=== PATIENT | female | born 1930 | race American Indian/Alaskan Native ===

== ENCOUNTER 2018-10-04 12:57 | Inpatient (IN) | payer MEDICARE, OTHER ==
[2018-10-04] MEDS ORDERED: PROVENTIL IH ONE (13:22)
[2018-10-04] MEDS ORDERED: ATROVENT IH ONE (13:22)
[2018-10-04] MEDS ORDERED: SOLU-Medrol IV ONE (13:22)
[2018-10-04] MEDS ORDERED: MAGNESIUM SULFATE 2GM/50ML 2 GM/50 ML BAG IV ONE (13:23)
--- NOTE | 2018-10-04 13:24 | Emergency Department Report ---
ED General Adult HPI - General Chief complaint: Dyspnea/Respdistress Stated complaint: MACKENZIE Time Seen by Provider: 10/04/18 13:14 Source: patient, family, EMS (ems notes not available at time of chart dictation), RN notes reviewed Mode of arrival: Stretcher Limitations: Other (patient is a poor historian) - History of Present Illness Initial comments: This is an 88-year-old female. The patient is visiting from [place]. She is not known to this provider previously. She may have a history of congestive heart failure, or emphysema, the patient is not certain. She is accompanied by her daughter. The patient recently drove an out of town for a . The drive was 17 hours. Patient and family report multiple stops for gas, bathroom break. The patient reports being in her usual state of health yesterday. She denies leg pain, leg swelling. She went to the today, and began to experience pain with shortness of breath. She has cough, wheezing, shortness of breath. This is similar to a prior episode of pneumonia that the patient had 2 years ago. The patient endorses weakness, but denies chest pain, abdominal pain, urinary sy mptoms. The patient told me that she's never had this before. The patient started tells me that she has had similar symptoms like this in the past. She is not home oxygen dependent as far as the family knows. -: Gradual, hour(s) Consistency: constant Improves with: medication, rest Worsens with: movement Associated Symptoms: cough, shortness of breath, weakness - Related Data Home Medications Medication Instructions Recorded Confirmed Last Taken Carvedilol 10/04/18 10/04/18 Furosemide [Lasix TAB] 40 mg PO QDAY 10/04/18 10/04/18 Lisinopril 10/04/18 10/04/18 Potassium 10/04/18 10/04/18 Allergies Allergy/AdvReac Type Severity Reaction Status Date / Time No Known Allergies Allergy Unverified 10/04/18 14:40 ED Review of Systems ROS: Stated complaint: MACKENZIE Other details as noted in HPI Constitutional: malaise Eyes: denies: eye discharge Respiratory: cough, shortness of breath, wheezing Cardiovascular: denies: chest pain Gastrointestinal: denies: abdominal pain, hematemesis, melena, hematochezia Genitourinary: denies: dysuria Musculoskeletal: denies: back pain, arthralgia, myalgia Skin: denies: lesions Neurological: weakness Psychiatric: anxiety ED Past Medical Hx - Medications Home Medications: Home Medications Medication Instructions Recorded Confirmed Last Taken Type Carvedilol 10/04/18 10/04/18 History Furosemide [Lasix TAB] 40 mg PO QDAY 10/04/18 10/04/18 History Lisinopril 10/04/18 10/04/18 History Potassium 10/04/18 10/04/18 History ED Physical Exam - General Limitations: No Limitations General appearance: alert, anxious, in distress - Head Head exam: Present: atraumatic, normocephalic - Eye Eye exam: Present: normal appearance, EOMI. Absent: nystagmus - ENT ENT exam: Present: normal exam, normal orophraynx, mucous membranes moist, normal external ear exam - Neck Neck exam: Present: normal inspection, full ROM. Absent: tenderness, meningismus - Respiratory Respiratory exam: Present: respiratory distress, wheezes, rhonchi - Cardiovascular Cardiovascular Exam: Present: normal rhythm, tachycardia, normal heart sounds. Absent: systolic murmur, diastolic murmur, rubs, gallop - GI/Abdominal GI/Abdominal exam: Present: soft. Absent: distended, tenderness, guarding, rebound, rigid, pulsatile mass - Extremities Exam Extremities exam: Present: normal inspection, full ROM, normal capillary refill, other (2+ pulses noted in the bilateral upper, lower extremities. Compartments soft. No long bony tenderness. The pelvis is stable.). Absent: pedal edema, joint swelling, calf tenderness - Back Exam Back exam: Present: normal inspection, full ROM. Absent: tenderness, CVA tenderness (R), paraspinal tenderness, vertebral tenderness - Neurological Exam Neurological exam: Present: alert, CN II-XII intact, other (Extraocular movements intact. Tongue midline. No facial droop. Facial sensation intact to light touch in the V1, V2, V3 distribution bilaterally. 5 and 5 strength in 4 extremities.. Sensation is intact to light touch in 4 extremities.). Absent: motor sensory deficit - Psychiatric Psychiatric exam: Present: anxious - Skin Skin exam: Present: warm, dry, intact, normal color. Absent: rash ED Course Vital Signs 10/04/18 10/04/18 10/04/18 13:27 13:28 14:01 Temperature 97.6 F Pulse Rate 108 H 87 Pulse Rate [ 94 H Anterior Bilateral Throughout] Respiratory 18 18 Rate Respiratory 24 Rate [Anterior Bilateral Throughout] Blood Pressure Blood Pressure 153/88 106/58 [Right] O2 Sat by Pulse 89 98 Oximetry 10/04/18 10/04/18 10/04/18 14:15 14:27 14:30 Temperature Pulse Rate 92 H 84 Pulse Rate [ 83 Anterior Bilateral Throughout] Respiratory 20 20 Rate Respiratory 21 Rate [Anterior Bilateral Throughout] Blood Pressure Blood Pressure 116/59 122/57 [Right] O2 Sat by Pulse 98 98 Oximetry 10/04/18 10/04/18 10/04/18 14:52 14:54 16:49 Temperature Pulse Rate 86 Pulse Rate [ 87 Anterior Bilateral Throughout] Respiratory 21 20 Rate Respiratory 25 H Rate [Anterior Bilateral Throughout] Blood Pressure 122/60 Blood Pressure [Right] O2 Sat by Pulse 99 98 Oximetry 10/04/18 17:04 Temperature Pulse Rate Pulse Rate [ 86 Anterior Bilateral Throughout] Respiratory Rate Respiratory 20 Rate [Anterior Bilateral Throughout] Blood Pressure Blood Pressure [Right] O2 Sat by Pulse Oximetry - Reevaluation(s) Reevaluation #1: 10/04/18 14:11 Differential diagnosis, including not limited to: Pneumonia, congestive heart failure, bronchitis, emphysema Assessment and plan: 88-year-old female with marked respiratory distress. She is tachycardic, tachypnea, and desaturates to 89% on room air. Clinically suspect pneumonia. X-ray the chest to my interpretation suggests right lower lobe pneumonia. Patient from the community. Clinically doubt DVT, pulmonary embolus, however we will obtain right lower extremity, left lower extremity DVT study. She will be given albuterol, Atrovent, steroids, magnesium, she will be treated empirically with ceftriaxone, azithromycin. She is currently on BiPAP, and appears to be feeling better. Discussed with patient and family goals of care, they indicate patient is full code currently. I doubt DVT, we're waiting for at bedside lower extremity DVT study. Reevaluation #2: 10/04/18 14:37 Laboratory studies reviewed and appreciated. Patient appears much improved on B iPAP. No DVT noted in the right lower extremity. Vital signs reviewed and appreciated. Patient appears to have a component of volume overload. Given her BiPAP requirement, it is my opinion that she will not benefit from a fluid bolus at this time. The Hospital physician, Dr. Day has accepted the patient to the medical service. Reevaluation #3: 10/04/18 18:36 DVT study negative. Work of breathing improved. Patient off BiPAP. ED Medical Decision Making - Lab Data Result diagrams: 10/04/18 13:32 10/04/18 13:32 Vital Signs 10/04/18 10/04/18 13:27 13:28 Temperature 97.6 F Pulse Rate 108 H Pulse Rate [ 94 H Anterior Bilateral Throughout] Respiratory 18 Rate Respiratory 24 Rate [Anterior Bilateral Throughout] Blood Pressure 153/88 [Right] O2 Sat by Pulse 89 Oximetry - EKG Data 10/04/18 15:11 sinus, 85 bpm, normal axis, QTC within normal limits, high left ventricular voltage, atrial enlargement, motion artifact, not consistent with ST elevation myocardial infarction. - Radiology Data Radiology results: image reviewed interpreted by me: X-ray of the chest shows right lower lobe pneumonia. Critical Care Time: Yes Critical care time in (mins) excluding proc time.: 45 Critical care attestation.: If time is entered above; I have spent that time in minutes in the direct care of this critically ill patient, excluding procedure time. ED Disposition Clinical Impression: Respiratory distress Disposition: [id number] OP ADMIT IP TO THIS HOSP Is pt being admited?: Yes Condition: Fair
[2018-10-04 14:05] LABS: Basophils % (Auto) 0.4 % (0.0-1.8); Eosinophils # (Auto) 0.2 K/mm3 (0.0-0.4); Eosinophils % (Auto) 2.1 % (0.0-4.3); Hematocrit 40.7 % (30.3-42.9); Hemoglobin 13.2 gm/dl (10.1-14.3); Lymphocytes # (Auto) 1.2 K/mm3 (1.2-5.4); Lymphocytes % (Auto) 15.2 % (13.4-35.0); Mean Corpuscular HGB Conc 32 % (30-34); Mean Corpuscular Volume 91 fl (79-97); Monocytes # (Auto) 0.2 K/mm3 (0.0-0.8); Monocytes % (Auto) 2.6 % (0.0-7.3); Platelet Count 180 K/mm3 (140-440); Red Blood Count 4.49 M/mm3 (3.65-5.03); Red Cell Distribution Width 16.6 % (13.2-15.2)
[2018-10-04] MEDS ORDERED: ROCEPHIN/NS 1 GM/50 ML 1 GM/50 ML BAG IV ONE (14:07)
[2018-10-04 14:15] LABS: INR 1.15 (0.87-1.13)
[2018-10-04 14:16] LABS: Partial Thromboplastin Time 27.2 Sec. (24.2-36.6)
[2018-10-04 14:24] LABS: Albumin 3.9 g/dL (3.9-5); Calcium 8.8 mg/dL (8.4-10.2)
[2018-10-04] MEDS ORDERED: ZITHROMAX 500 MG in NACL 0.9% 250ML 250 ML IV ONE (14:30)
[2018-10-04] MEDS ORDERED: LASIX IV ONE (14:33)
--- NOTE | 2018-10-04 15:05 | History and Physical Report ---
History of Present Illness Date of examination: 10/04/18 Date of admission: 10/04/18 Chief complaint: Increasing SOB for 1 day. History of present illness: 88-year-old female visiting from [place] with history of congestive heart failure recently drove from out of town for a . The drive was 17 hours. Patient and family report multiple stops for gas, bathroom break. The patient reports being in her usual state of health yesterday. She denies leg pain, leg swelling. She went to the today, and began to experience pain with shortness of breath. She has cough, wheezing, shortness of breath. This is similar to a prior episode of pneumonia that the patient had 2 years ago. The patient endorses weakness, but denies chest pain, abdominal pain, urinary symptoms. Severe Orthopnea present Class IV NYHA symptoms present Past Medical History Htn CHF Past surgical history N/a Social Hustory Does't smoke Family history Htn - Medications Home Medications: Home Medications Medication Instructions Recorded Confirmed Last Taken Type Carvedilol 10/04/18 10/04/18 History Furosemide [Lasix TAB] 40 mg PO QDAY 10/04/18 10/04/18 History Lisinopril 10/04/18 10/04/18 History Potassium 10/04/18 10/04/18 History Review of Systems ROS: Stated complaint: MACKENZIE Other details as noted in HPI Constitutional: malaise Eyes: denies: eye discharge Respiratory: cough, shortness of breath, wheezing Cardiovascular: denies: chest pain Gastrointestinal: denies: abdominal pain, hematemesis, melena, hematochezia Genitourinary: denies: dysuria Musculoskeletal: denies: back pain, arthralgia, myalgia Skin: denies: lesions Neurological: weakness Psychiatric: anxie Medications and Allergies Allergies Allergy/AdvReac Type Severity Reaction Status Date / Time No Known Allergies Allergy Unverified 10/04/18 14:40 Home Medications Medication Instructions Recorded Confirmed Last Taken Type Furosemide [Lasix TAB] 40 mg PO QDAY 10/04/18 10/05/18 10/04/18 History Aspirin [Lo-Dose Aspirin EC] 81 mg PO DAILY 10/05/18 10/05/18 1 Day Ago History ~10/04/18 Carvedilol [Coreg] 3.125 mg PO BID 10/05/18 10/05/18 1 Day Ago History ~10/04/18 Losartan [Cozaar] 25 mg PO QDAY 10/05/18 10/05/18 1 Day Ago History ~10/04/18 Active Meds: Active Medications Azithromycin 500 mg/ Sodium (Chloride) 250 mls @ 250 mls/hr IV ONCE ONE Stop: 10/04/18 15:29 Exam - Constitutional Vitals: Temp Pulse Resp BP Pulse Ox 97.6 F 86 20 122/60 98 10/04/18 13:27 10/04/18 14:52 10/04/18 14:54 10/04/18 14:52 10/04/18 14:54 General appearance: Present: severe distress - Respiratory Respiratory: bilateral: diminished, rales, rhonchi - Cardiovascular Heart rate: 98 Rhythm: regular - Extremities Extremities: no ischemia - Abdominal General gastrointestinal: Present: soft, non-tender, normal bowel sounds - Rectal Rectal Exam: deferred - Integumentary Integumentary: Present: clear - Musculoskeletal Musculoskeletal: strength equal bilaterally - Psychiatric Psychiatric: appropriate mood/affect - Neurologic Neurologic: CNII-XII intact - Allied Health Allied health notes reviewed: nursing, case management Results - Labs CBC & Chem 7: 10/04/18 13:32 10/04/18 13:32 Labs: Laboratory Last Values WBC 7.6 K/mm3 (4.5-11.0) 10/04/18 13:32 RBC 4.49 M/mm3 (3.65-5.03) 10/04/18 13:32 Hgb 13.2 gm/dl (10.1-14.3) 10/04/18 13:32 Hct 40.7 % (30.3-42.9) 10/04/18 13:32 MCV 91 fl (79-97) 10/04/18 13:32 MCH 29 pg (28-32) 10/04/18 13:32 MCHC 32 % (30-34) 10/04/18 13:32 RDW 16.6 % (13.2-15.2) H 10/04/18 13:32 Plt Count 180 K/mm3 (140-440) 10/04/18 13:32 Lymph % (Auto) 15.2 % (13.4-35.0) 10/04/18 13:32 [place] % (Auto) 2.6 % (0.0-7.3) 10/04/18 13:32 Eos % (Auto) 2.1 % (0.0-4.3) 10/04/18 13:32 Baso % (Auto) 0.4 % (0.0-1.8) 10/04/18 13:32 Lymph # 1.2 K/mm3 (1.2-5.4) 10/04/18 13:32 [place] # 0.2 K/mm3 (0.0-0.8) 10/04/18 13:32 Eos # 0.2 K/mm3 (0.0-0.4) 10/04/18 13:32 Baso # 0.0 K/mm3 (0.0-0.1) 10/04/18 13:32 Seg Neutrophils % 79.7 % (40.0-70.0) H 10/04/18 13:32 Seg Neutrophils # 6.0 K/mm3 (1.8-7.7) 10/04/18 13:32 PT 15.4 Sec. (12.2-14.9) H 10/04/18 13:32 INR 1.15 (0.87-1.13) H 10/04/18 13:32 APTT 27.2 Sec. (24.2-36.6) 10/04/18 13:32 Sodium 137 mmol/L (137-145) 10/04/18 13:32 Potassium 4.4 mmol/L (3.6-5.0) 10/04/18 13:32 Chloride 103.1 mmol/L (98-107) 10/04/18 13:32 Carbon Dioxide 17 mmol/L (22-30) L 10/04/18 13:32 Anion Gap 21 mmol/L 10/04/18 13:32 BUN 31 mg/dL (7-17) H 10/04/18 13:32 Creatinine 1.5 mg/dL (0.7-1.2) H 10/04/18 13:32 Estimated GFR 33 ml/min 10/04/18 13:32 BUN/Creatinine Ratio 21 % 10/04/18 13:32 Glucose 265 mg/dL (65-100) H 10/04/18 13:32 Lactic Acid 1.80 mmol/L (0.7-2.0) 10/04/18 13:32 Calcium 8.8 mg/dL (8.4-10.2) 10/04/18 13:32 Total Bilirubin 0.50 mg/dL (0.1-1.2) 10/04/18 13:32 AST 17 units/L (5-40) 10/04/18 13:32 ALT 14 units/L (7-56) 10/04/18 13:32 Alkaline Phosphatase 71 units/L (35-129) 10/04/18 13:32 Troponin T < 0.010 ng/mL (0.00-0.029) 10/04/18 13:32 NT-Pro-B Natriuret Pep 4388 pg/mL (0-900) H 10/04/18 13:32 Total Protein 7.5 g/dL (6.3-8.2) 10/04/18 13:32 Albumin 3.9 g/dL (3.9-5) 10/04/18 13:32 Albumin/Globulin Ratio 1.1 % 10/04/18 13:32 - Imaging and Cardiology EKG: report reviewed (NSR 85/min LVH) Chest x-ray: report reviewed Imaging and Cardiology: CXR IMPRESSION: 1. Enlarged cardiac silhouette with bilateral interstitial and airspace process, probable small right pleural fluid collection and evidence of pulmonary venous congestion. This constellation of findings is most suggestive of CHF. However, a superimposed infectious process cannot entirely be excluded. Assessment and Plan Advance Directives: Yes (Full code) VTE prophylaxis?: Chemical Plan of care discussed with patient/family: Yes - Patient Problems (1) Acute respiratory failure with hypoxia Current Visit: Yes Status: Acute Plan to address problem: Patient with Low sats On Bipap Intubation if necessary (2) Acute exacerbation of congestive heart failure Current Visit: Yes Status: Acute Qualifiers: Heart failure type: combined systolic and diastolic Qualified Code(s): I50.43 - Acute on chronic combined systolic (congestive) and diastolic (congestive) heart failure Plan to address problem: IV Lasix for now Echo for EF (3) HTN (hypertension) Current Visit: Yes Status: Chronic Qualifiers: Hypertension type: essential hypertension Qualified Code(s): I10 - Essential (primary) hypertension Plan to address problem: Cont antihypertensives (4) JOY (acute kidney injury) Current Visit: Yes Status: Acute Plan to address problem: Will defer to Nephrology (5) Hyperglycemia Current Visit: Yes Status: Acute Plan to address problem: Coverage for now (6) DVT prophylaxis Current Visit: Yes Status: Acute Plan to address problem: on lovenox
[2018-10-04] MEDS ORDERED: ZOFRAN IV PRN (15:10)
[2018-10-04] MEDS ORDERED: DILAUDID IV PRN (15:10)
[2018-10-04] MEDS ORDERED: PERCOCET 5/325 PO PRN (15:10)
[2018-10-04] MEDS ORDERED: SODIUM CHLORIDE FLUSH SYRINGE 10 ML IV PRN (15:10)
[2018-10-04] MEDS ORDERED: TYLENOL PO PRN (15:10)
[2018-10-04] MEDS ORDERED: LEVAQUIN 750MG/150ML 750 MG/150 ML BAG IV SCH (16:00)
[2018-10-04] MEDS ORDERED: DUONEB *Not for PRN Use IH ONE (16:49)
[2018-10-04] MEDS: DUONEB *Not for PRN Use IH SCH ×2 (16:49→21:40)
[2018-10-04] MEDS ORDERED: LASIX ONE (17:47)
[2018-10-04] MEDS: K-DUR PO SCH (17:47)
[2018-10-04] MEDS ORDERED: K-DUR PO ONE (17:47)
[2018-10-04] MEDS: LASIX IV SCH (18:33)
--- NOTE | 2018-10-04 18:37 | XRay Report ---
PROCEDURE: XR CHEST 1V AP TECHNIQUE: Chest radiograph single view. HISTORY: dyspnea COMPARISONS: None . FINDINGS: There is a diffuse bilateral interstitial and airspace process in both lungs with a probable small ri ght pleural fluid collection. The cardiac silhouette is enlarged. The thoracic aorta is tortuous with atherosclerotic vascular calcification. There is prominence of the pulmonary venous vasculature suggestive of pulmonary venous congestion. The bony structures are notable for degenerative change of the shoulder joints bilaterally. Visualiza tion of detail of the thoracic spine is limited. IMPRESSION: 1. Enlarged cardiac silhouette with bilateral interstitial and airspace process, probable small right pleural fluid collection and evidence of pulmonary venous congestion. This constellation of findings is most suggestive of CHF. However, a superimposed infectious process cannot entirely be excluded. This document is electronically signed by Maricel Maldonado MD., October 04 2018 02:32:35 PM ET
--- NOTE | 2018-10-04 19:46 | Vascular Lab Report ---
PROCEDURE: VL VENOUS DUPLEX LE BILAT HISTORY: dyspnea ? lower ext swelling FINDINGS: Real-time ultrasound of the right leg and left leg was performed using grayscale and color Doppler images. These images demonstrate no evidence of deep venous thrombus in the right or left common femoral vein , superficial femoral vein, popliteal vein and posterior tibial vein. IMPRESSION: No DVT in either leg This document is electronically signed by Iban Dueñas MD., October 04 2018 03:20:01 PM ET
[2018-10-04] MEDS ORDERED: LEVAQUIN 750MG/150ML 750 MG/150 ML BAG IV ONE (19:55)
[2018-10-04] MEDS: LEVAQUIN 750MG/150ML 750 MG/150 ML BAG IV SCH (20:00)
[2018-10-04] MEDS: SODIUM CHLORIDE FLUSH SYRINGE 10 ML IV SCH (23:03)
[2018-10-04] MEDS: SOLU-Medrol IV SCH (23:03)
[2018-10-05] MEDS: LASIX IV SCH ×2 (05:22→18:16)
[2018-10-05] MEDS: SOLU-Medrol IV SCH ×3 (05:23→21:39)
[2018-10-05] MEDS: K-DUR PO SCH ×2 (05:23→18:16)
[2018-10-05 08:35] LABS: Hemoglobin 12.9 gm/dl (10.1-14.3); Lymphocytes % (Auto) 15.5 % (13.4-35.0); Mean Corpuscular HGB Conc 33 % (30-34); Mean Corpuscular Volume 89 fl (79-97); Monocytes # (Auto) 0.1 K/mm3 (0.0-0.8); Monocytes % (Auto) 1.3 % (0.0-7.3); Platelet Count 191 K/mm3 (140-440); Red Blood Count 4.37 M/mm3 (3.65-5.03); Red Cell Distribution Width 16.5 % (13.2-15.2)
[2018-10-05 08:54] LABS: Albumin 4.3 g/dL (3.9-5); Calcium 9.2 mg/dL (8.4-10.2)
[2018-10-05] MEDS: DUONEB *Not for PRN Use IH SCH ×5 (09:25→20:11)
--- NOTE | 2018-10-05 09:58 | Consultation ---
History of Present Illness Consult date: 10/05/18 Consult reason: congestive heart failure History of present illness: 88-year-old female visiting from [place] with history of congestive heart f ailure who was attending a for her brother in law in town yesterday. She reports she got very upset at the and subsequently became short of breath. She has recently noticed intermittent orthopnea but has not experienced any unusual LE edema, palpitations, syncope or pre-syncope. She was noted to have elevated BNP and pulmonary congestion on chest Xray consistent with decompensated CHF. Past History Past Medical History: heart failure, hypertension Social history: denies: smoking, alcohol abuse Family history: hypertension Medications and Allergies Allergies Allergy/AdvReac Type Severity Reaction Status Date / Time No Known Allergies Allergy Unverified 10/04/18 14:40 Home Medications Medication Instructions Recorded Confirmed Last Taken Type Furosemide [Lasix TAB] 40 mg PO QDAY 10/04/18 10/05/18 10/04/18 History Aspirin [Lo-Dose Aspirin EC] 81 mg PO DAILY 10/05/18 10/05/18 1 Day Ago History ~10/04/18 Carvedilol [Coreg] 3.125 mg PO BID 10/05/18 10/05/18 1 Day Ago History ~10/04/18 Losartan [Cozaar] 25 mg PO QDAY 10/05/18 10/05/18 1 Day Ago History ~10/04/18 Active Meds: Active Medications Acetaminophen (Tylenol) 650 mg PO Q4H PRN PRN Reason: Pain MILD(1-3)/Fever >100.5/GONSALES Albuterol/Ipratropium (Duoneb *Not For Prn Use*) 1 ampul IH QIDRT [facility] Last Admin: 10/05/18 09:28 Dose: Not Given Documented by: Furosemide (Lasix) 40 mg IV 0600,1800 [facility] Last Admin: 10/05/18 05:22 Dose: 40 mg Documented by: Hydromorphone HCl (Dilaudid) 0.5 mg IV Q3H PRN PRN Reason: Pain , Severe (7-10) Levofloxacin/Dextrose (Levaquin 750mg/150ml) 750 mg in 150 mls @ 100 mls/hr IV Q48HR [facility]; Protocol Last Admin: 10/04/18 20:00 Dose: 100 mls/hr Documented by: Insulin Human Lispro (Humalog) 0 unit SUB-Q ACHS [facility]; Protocol Methylprednisolone Sodium Succinate (Solu-Medrol) 40 mg IV Q8HR [facility] Last Admin: 10/05/18 05:23 Dose: 40 mg Documented by: Ondansetron HCl (Zofran) 4 mg IV Q8H PRN PRN Reason: Nausea And Vomiting Oxycodone/Acetaminophen (Percocet 5/325) 1 tab PO Q6H PRN PRN Reason: Pain, Moderate (4-6) Potassium Chloride (K-Dur) 20 meq PO Q12H [facility] Last Admin: 10/05/18 05:23 Dose: 20 meq Documented by: Sodium Chloride (Sodium Chloride Flush Syringe 10 Ml) 10 ml IV BID [facility] Last Admin: 10/04/18 23:03 Dose: 10 ml Documented by: Sodium Chloride (Sodium Chloride Flush Syringe 10 Ml) 10 ml IV PRN PRN PRN Reason: LINE FLUSH Review of Systems All systems: negative (per hpi) Physical Examination Vital Signs Temp Pulse Resp BP Pulse Ox 97.6 F 108 H 18 153/88 89 10/04/18 13:27 10/04/18 13:27 10/04/18 13:27 10/04/18 13:27 10/04/18 13:27 HEENT: Positive: PERRL, EOMI Neck: Positive: neck supple Cardiac: Positive: Regular Rate, Regular Rhythm, Systolic Murmur (II/ HSM at apex) Lungs: Positive: Decreased Breath Sounds, Rales Abdomen: Positive: Soft, Active Bowel Sounds Extremities: Absent: edema Results 10/05/18 07:18 10/05/18 07:18 Cardiac Enzymes 10/04/18 10/05/18 Range/Units 13:32 07:18 AST 17 17 (5-40) units/L Coagulation 10/04/18 Range/Units 13:32 PT 15.4 H (12.2-14.9) Sec. INR 1.15 H (0.87-1.13) APTT 27.2 (24.2-36.6) Sec. CBC 10/04/18 10/05/18 Range/Units 13:32 07:18 WBC 7.6 6.3 (4.5-11.0) K/mm3 RBC 4.49 4.37 (3.65-5.03) M/mm3 Hgb 13.2 12.9 (10.1-14.3) gm/dl Hct 40.7 39.0 (30.3-42.9) % Plt Count 180 191 (140-440) K/mm3 Lymph # 1.2 1.0 L (1.2-5.4) K/mm3 [place] # 0.2 0.1 (0.0-0.8) K/mm3 Eos # 0.2 0.0 (0.0-0.4) K/mm3 Baso # 0.0 0.0 (0.0-0.1) K/mm3 Comprehensive Metabolic Panel 10/04/18 10/05/18 Range/Units 13:32 07:18 Sodium 137 138 (137-145) mmol/L Potassium 4.4 4.4 (3.6-5.0) mmol/L Chloride 103.1 99.4 (98-107) mmol/L Carbon Dioxide 17 L 19 L (22-30) mmol/L BUN 31 H 34 H (7-17) mg/dL Creatinine 1.5 H 1.6 H (0.7-1.2) mg/dL Glucose 265 H 162 H (65-100) mg/dL Calcium 8.8 9.2 (8.4-10.2) mg/dL AST 17 17 (5-40) units/L ALT 14 13 (7-56) units/L Alkaline Phosphatase 71 68 (35-129) units/L Total Protein 7.5 7.8 (6.3-8.2) g/dL Albumin 3.9 4.3 (3.9-5) g/dL Assessment and Plan Acute on chronic heart failure. Htn Recommend: IV diuresis Monitor and correct electrolytes Continue chronic medical therapy for heart failure Check Echocardiogram
--- NOTE | 2018-10-05 13:43 | Consultation ---
History of Present Illness - Reason for Consult Consult date: 10/05/18 acute renal failure - History of Present Illness The patient is an 88 YO female with medical history significant for HTN, DM type 2 (diet controlled) and CHF who presented to [facility] ER yesterday with c/o shortness of breath. The patient drove from [place] to attend for her brother in-law. Yesterday while at the confucianist she began to experience shortness of breath and associated with cough and wheezing. This is similar to a prior episode of pneumonia about 2 years ago. Her symptoms are better now. She denies leg pain, leg swelling, hemoptysis, cp, N, V, D, abd pain, dizziness, syncope, dysuria or hematuria. Patient denies any prior kidney problem or h/o kidney stone. Creatinine was 1.6 today. Nephrology was consulted for further evaluation. Past History Past Medical History: diabetes, heart failure, hypertension Social history: denies: smoking, alcohol abuse Family history: hypertension Medications and Allergies Allergies Allergy/AdvReac Type Severity Reaction Status Date / Time No Known Allergies Allergy Unverified 10/04/18 14:40 Home Medications Medication Instructions Recorded Confirmed Last Taken Type Furosemide [Lasix TAB] 40 mg PO QDAY 10/04/18 10/05/18 10/04/18 History Aspirin [Lo-Dose Aspirin EC] 81 mg PO DAILY 10/05/18 10/05/18 1 Day Ago History ~10/04/18 Carvedilol [Coreg] 3.125 mg PO BID 10/05/18 10/05/18 1 Day Ago History ~10/04/18 Losartan [Cozaar] 25 mg PO QDAY 10/05/18 10/05/18 1 Day Ago History ~10/04/18 Active Meds: Active Medications Acetaminophen (Tylenol) 650 mg PO Q4H PRN PRN Reason: Pain MILD(1-3)/Fever >100.5/GONSALES Albuterol/Ipratropium (Duoneb *Not For Prn Use*) 1 ampul IH QIDRT [facility] Last Admin: 10/05/18 11:51 Dose: Not Given Documented by: Furosemide (Lasix) 40 mg IV 0600,1800 [facility] Last Admin: 10/05/18 05:22 Dose: 40 mg Documented by: Hydromorphone HCl (Dilaudid) 0.5 mg IV Q3H PRN PRN Reason: Pain , Severe (7-10) Levofloxacin/Dextrose (Levaquin 750mg/150ml) 750 mg in 150 mls @ 100 mls/hr IV Q48HR [facility]; Protocol Last Admin: 10/04/18 20:00 Dose: 100 mls/hr Documented by: Insulin Human Lispro (Humalog) 0 unit SUB-Q ACHS [facility]; Protocol Methylprednisolone Sodium Succinate (Solu-Medrol) 40 mg IV Q8HR [facility] Last Admin: 10/05/18 05:23 Dose: 40 mg Documented by: Ondansetron HCl (Zofran) 4 mg IV Q8H PRN PRN Reason: Nausea And Vomiting Oxycodone/Acetaminophen (Percocet 5/325) 1 tab PO Q6H PRN PRN Reason: Pain, Moderate (4-6) Potassium Chloride (K-Dur) 20 meq PO Q12H [facility] Last Admin: 10/05/18 05:23 Dose: 20 meq Documented by: Sodium Chloride (Sodium Chloride Flush Syringe 10 Ml) 10 ml IV BID [facility] Last Admin: 10/04/18 23:03 Dose: 10 ml Documented by: Sodium Chloride (Sodium Chloride Flush Syringe 10 Ml) 10 ml IV PRN PRN PRN Reason: LINE FLUSH Review of Systems Constitutional: no weight loss, no weight gain, no fever, no chills, no anorexia, no weakness Cardiovascular: shortness of breath, dyspnea on exertion, high blood pressure, no chest pain, no orthopnea, no edema, no syncope, no lightheadedness, no paroxysmal nocturnal dyspnea, no leg edema Respiratory: cough, shortness of breath, dyspnea on exertion, no cough with sputum, no excessive sputum, no hemoptysis Gastrointestinal: no abdominal pain, no nausea, no vomiting, no diarrhea, no melena Genitourinary Female: no dysuria, no hematuria Rectal: no bleeding Integumentary: no rash, no redness, no wounds, no jaundice Neurological: no head injury, no paralysis, no syncope, no convulsions, no change in speech, no change in mentation, no confusion Exam - Vital Signs Vital signs: Vital Signs Temp Pulse Resp BP Pulse Ox 97.6 F 108 H 18 153/88 89 10/04/18 13:27 10/04/18 13:27 10/04/18 13:27 10/04/18 13:27 10/04/18 13:27 - General Appearance General appearance: well-developed, well-nourished, appears stated age, other (not in distress) EENT: ATNC, PERRL, mucous membranes moist, hearing intact, vision intact Neck: Present: neck supple, trachea midline Respiratory: Clear to Ascultation Heart: regular, S1S2, no murmurs Gastrointestinal: Present: normoactive bowel sounds. Absent: tenderness, distended Integumentary: no rash, warm and dry Neurologic: no focal deficit, no asterixis, alert and oriented x3 Musculoskeletal: Present: other (no edema) Psychiatric: cooperative Results - Lab Results 10/05/18 07:18 10/05/18 07:18 Most recent lab results Calcium 9.2 mg/dL (8.4-10.2) 10/05/18 07:18 - Image Kidney/bladder ultrasound: pending Assessment and Plan 1. Acute kidney injury: Likely Vasomotor / hemodynamic JOY in the setting of CHF exacerbation. Renal function appears to be stable. Baseline renal function is unknown. Urine studies and Renal US. Monitor renal function. Avoid nephrotoxic agents. Meds dosage based on GFR. 2. FEN: Volume overload, diuresis. Metabolic acidosis. 3. Acute on chronic CHF: Improving. Followed by cards. 4. DM type 2. 5. HTN.
[2018-10-05] MEDS: HumaLOG SUB-Q SCH ×3 (15:02→21:39)
[2018-10-05] MEDS: SODIUM CHLORIDE FLUSH SYRINGE 10 ML IV SCH ×2 (16:13→21:39)
--- NOTE | 2018-10-05 16:15 | Progress Note ---
Assessment and Plan - Patient Problems (1) JOY (acute kidney injury) Current Visit: Yes Status: Acute Plan to address problem: Acute kidney injury in the presence of congestive heart failure most likely vasomotor. Will follow up chemistry in a.m. Nephrology consult. (2) Acute exacerbation of congestive heart failure Current Visit: Yes Status: Acute Qualifiers: Heart failure type: combined systolic and diastolic Qualified Code(s): I50.43 - Acute on chronic combined systolic (congestive) and diastolic (congestive) heart failure Plan to address problem: Exacerbation of congestive heart failure. Gentle diuresis especially with acute kidney injury.Patient currently not on beta milo or ANDREA inhibitor. The first continue diuretics and establish left ventricular function. If patient requires beta milo prior to discharge and we need to follow initiation of ANDREA inhibitor given acute kidney injury.. Echocardiogram pending. Will hold ANDREA inhibitor for now until renal function improves. Patient should do will presently asymptomatic now. No JVD know lower extremity edema no ascites. (3) DVT prophylaxis Current Visit: Yes Status: Acute (4) HTN (hypertension) Current Visit: Yes Status: Chronic Qualifiers: Hypertension type: essential hypertension Qualified Code(s): I10 - Essential (primary) hypertension Plan to address problem: Patient currently is without any medications in blood pressure is fairly well- controlled. History Interval history: Patient a bedside resting comfortably. No further shortness of breath. Patient is actively just received echocardiogram. Patient denies chest pain did not shortness of breath denies any lower extremity swelling. Chest x-ray upon admission showed mild pulmonary venous congestion. Hospitalist Physical - Constitutional Vitals: Temp Pulse Resp BP Pulse Ox 98.8 F 97 H 16 119/62 96 10/05/18 08:41 10/05/18 08:41 10/05/18 08:41 10/05/18 08:41 10/05/18 08:41 General appearance: Present: severe distress - EENT Eyes: Present: PERRL, EOM intact ENT: hearing intact, clear oral mucosa, dentition normal, no oropharyngeal erythema, no poor dentition, no thrush - Neck Neck: Present: supple, normal ROM. Absent: enlarged thyroid, masses or JVD, cervical LAD - Respiratory Respiratory: bilateral: CTA, rhonchi (few at bases) - Cardiovascular Rhythm: regular Heart Sounds: Present: S1 & S2 - Extremities Extremities: no ischemia, pulses intact, pulses symmetrical, No edema, normal temperature, normal color, Full ROM Peripheral Pulses: within normal limits - Abdominal General gastrointestinal: soft, non-tender, non-distended, normal bowel sounds - Integumentary Integumentary: Present: clear, warm, dry - Psychiatric Psychiatric: appropriate mood/affect, intact judgment & insight, memory intact - Neurologic Neurologic: CNII-XII intact, moves all extremities Results - Labs CBC & Chem 7: 10/05/18 07:18 10/05/18 07:18 Labs: Laboratory Last Values WBC 6.3 K/mm3 (4.5-11.0) 10/05/18 07:18 RBC 4.37 M/mm3 (3.65-5.03) 10/05/18 07:18 Hgb 12.9 gm/dl (10.1-14.3) 10/05/18 07:18 Hct 39.0 % (30.3-42.9) 10/05/18 07:18 MCV 89 fl (79-97) 10/05/18 07:18 MCH 29 pg (28-32) 10/05/18 07:18 MCHC 33 % (30-34) 10/05/18 07:18 RDW 16.5 % (13.2-15.2) H 10/05/18 07:18 Plt Count 191 K/mm3 (140-440) 10/05/18 07:18 Lymph % (Auto) 15.5 % (13.4-35.0) 10/05/18 07:18 [place] % (Auto) 1.3 % (0.0-7.3) 10/05/18 07:18 Eos % (Auto) 0.0 % (0.0-4.3) 10/05/18 07:18 Baso % (Auto) 0.0 % (0.0-1.8) 10/05/18 07:18 Lymph # 1.0 K/mm3 (1.2-5.4) L 10/05/18 07:18 [place] # 0.1 K/mm3 (0.0-0.8) 10/05/18 07:18 Eos # 0.0 K/mm3 (0.0-0.4) 10/05/18 07:18 Baso # 0.0 K/mm3 (0.0-0.1) 10/05/18 07:18 Seg Neutrophils % 83.2 % (40.0-70.0) H 10/05/18 07:18 Seg Neutrophils # 5.3 K/mm3 (1.8-7.7) 10/05/18 07:18 PT 15.4 Sec. (12.2-14.9) H 10/04/18 13:32 INR 1.15 (0.87-1.13) H 10/04/18 13:32 APTT 27.2 Sec. (24.2-36.6) 10/04/18 13:32 Sodium 138 mmol/L (137-145) 10/05/18 07:18 Potassium 4.4 mmol/L (3.6-5.0) 10/05/18 07:18 Chloride 99.4 mmol/L (98-107) 10/05/18 07:18 Carbon Dioxide 19 mmol/L (22-30) L 10/05/18 07:18 Anion Gap 24 mmol/L 10/05/18 07:18 BUN 34 mg/dL (7-17) H 10/05/18 07:18 Creatinine 1.6 mg/dL (0.7-1.2) H 10/05/18 07:18 Estimated GFR 37 ml/min 10/05/18 07:18 BUN/Creatinine Ratio 21 % 10/05/18 07:18 Glucose 162 mg/dL (65-100) H 10/05/18 07:18 POC Glucose 162 (70-105) H 10/05/18 08:43 Hemoglobin A1c 6.1 % (4-6) H 10/04/18 15:20 Lactic Acid 1.80 mmol/L (0.7-2.0) 10/04/18 13:32 Calcium 9.2 mg/dL (8.4-10.2) 10/05/18 07:18 Total Bilirubin 0.60 mg/dL (0.1-1.2) 10/05/18 07:18 AST 17 units/L (5-40) 10/05/18 07:18 ALT 13 units/L (7-56) 10/05/18 07:18 Alkaline Phosphatase 68 units/L (35-129) 10/05/18 07:18 Troponin T < 0.010 ng/mL (0.00-0.029) 10/04/18 13:32 NT-Pro-B Natriuret Pep 4388 pg/mL (0-900) H 10/04/18 13:32 Total Protein 7.8 g/dL (6.3-8.2) 10/05/18 07:18 Albumin 4.3 g/dL (3.9-5) 10/05/18 07:18 Albumin/Globulin Ratio 1.2 % 10/05/18 07:18
[2018-10-05 20:02] LABS: Bilirubin,Urine NEG (Negative); Blood,Urine NEG (Negative); Color,Urine Yellow (Yellow); Mucus,Urine FEW /HPF; Protein,Urine <15 mg/dL mg/dL (Negative); Urobilinogen,Urine < 2.0 mg/dL (<2.0)
[2018-10-05 20:07] LABS: Creatinine,Urine 85.3 mg/dL (0.1-20.0); Protein/Creatinine Ratio,Urine 0.15
[2018-10-05] MEDS ORDERED: LOVENOX SUB-Q SCH ×2 (22:00)
[2018-10-06] MEDS: K-DUR PO SCH (05:47)
[2018-10-06] MEDS: LASIX IV SCH (05:47)
[2018-10-06] MEDS: SOLU-Medrol IV SCH ×2 (06:00→13:12)
[2018-10-06] MEDS: DUONEB *Not for PRN Use IH SCH ×2 (07:50→12:37)
[2018-10-06] MEDS: HumaLOG SUB-Q SCH ×2 (08:59→13:12)
[2018-10-06] MEDS: LEVAQUIN 750MG/150ML 750 MG/150 ML BAG IV SCH (09:00)
--- NOTE | 2018-10-06 09:27 | Progress Note ---
Assessment and Plan 1. Acute kidney injury: Likely Vasomotor / hemodynamic JOY in the setting of CHF exacerbation. Increase in the creatinine level is likely due to diuresis. Lasix dose was decreased. Baseline renal function is unknown. Suspect CKD stage 3. Monitor renal function. Avoid nephrotoxic agents. Meds dosage based on GFR. 2. FEN: Volume overload, improved. Metabolic acidosis. 3. Acute on chronic CHF: Improving. Followed by cards. 4. DM type 2. 5. HTN. F/u with me or pcp within 1 week. Further work up needed. Also d/w her daughter at the bedside. Subjective Date of service: 10/06/18 Interval history: Patient is feeling better. Objective - Vital Signs Vital signs: Vital Signs - 12hr 10/05/18 10/06/18 10/06/18 23:35 04:00 07:35 Temperature 98.2 F 98.2 F 98.6 F Pulse Rate 115 H 112 H 105 H Pulse Rate [ Anterior Bilateral Throughout] Respiratory 16 16 18 Rate Respiratory Rate [Anterior Bilateral Throughout] Blood Pressure 93/55 117/69 Blood Pressure 103/58 [Right] O2 Sat by Pulse 97 97 94 Oximetry 10/06/18 10/06/18 07:50 08:05 Temperature Pulse Rate Pulse Rate [ 92 H 103 H Anterior Bilateral Throughout] Respiratory Rate Respiratory 18 18 Rate [Anterior Bilateral Throughout] Blood Pressure Blood Pressure [Right] O2 Sat by Pulse Oximetry - General Appearance General appearance: well-developed, well-nourished, appears stated age, other (not in distress) EENT: ATNC, PERRL, mucous membranes moist, hearing intact, vision intact Neck: supple Respiratory: Present: Clear to Ascultation Cardiology: regular, S1S2, no murmurs Gastrointestinal: normoactive bowel sounds, no tenderness, no distended Integumentary: no rash, warm and dry Neurologic: no focal deficit, no asterixis, alert and oriented x3 Musculoskeletal: other (no edema) - Lab 10/05/18 07:18 10/06/18 09:36 Most recent lab results Calcium 9.2 mg/dL (8.4-10.2) 10/05/18 07:18 Urine Creatinine 85.3 mg/dL (0.1-20.0) H 10/05/18 19:45 Urine Sodium 35 mmol/L 10/05/18 19:45 Urine Total Protein 13 mg/dL (5-11.8) H 10/05/18 19:45 Medications & Allergies - Medications Allergies/Adverse Reactions: Allergies No Known Allergies Allergy (Unverified 10/04/18 14:40) Home Medications: Home Medications Medication Instructions Recorded Confirmed Last Taken Type Furosemide [Lasix TAB] 40 mg PO QDAY 10/04/18 10/05/18 10/04/18 History Aspirin [Lo-Dose Aspirin EC] 81 mg PO DAILY 10/05/18 10/05/18 1 Day Ago History ~10/04/18 Carvedilol [Coreg] 3.125 mg PO BID 10/05/18 10/05/18 1 Day Ago History ~10/04/18 Active Medications: Generic Name Dose Route Start Last Admin Trade Name Freq PRN Reason Stop Dose Admin Acetaminophen 650 mg 10/04/18 15:10 Tylenol PO Q4H PRN Pain MILD(1-3)/Fever >100.5/GONSALES Albuterol/Ipratropium 1 ampul 10/04/18 16:00 10/06/18 07:50 Duoneb *Not For Prn Use* IH 1 ampul QIDRT [facility] Administration Enoxaparin Sodium 30 mg 10/05/18 22:00 10/05/18 22:23 Lovenox SUB-Q Not Given QDAY@2200 [facility] Furosemide 40 mg 10/04/18 18:00 10/06/18 05:47 Lasix IV 40 mg 0600,1800 [facility] Administration Hydromorphone HCl 0.5 mg 10/04/18 15:10 Dilaudid IV Q3H PRN Pain , Severe (7-10) Levofloxacin/Dextrose 750 mg in 150 mls @ 100 mls/hr 10/04/18 17:00 10/06/18 09:00 Levaquin 750mg/150ml IV 100 mls/hr Q48HR [facility] Administration Protocol Insulin Human Lispro 0 unit 10/05/18 11:30 10/06/18 08:59 Humalog SUB-Q 2 unit ACHS [facility] Administration Protocol Methylprednisolone Sodium Succinate 40 mg 10/04/18 22:00 10/06/18 06:00 Solu-Medrol IV Not Given Q8HR [facility] Ondansetron HCl 4 mg 10/04/18 15:10 Zofran IV Q8H PRN Nausea And Vomiting Oxycodone/Acetaminophen 1 tab 10/04/18 15:10 Percocet 5/325 PO Q6H PRN Pain, Moderate (4-6) Potassium Chloride 20 meq 10/04/18 16:00 10/06/18 05:47 K-Dur PO 20 meq Q12H [facility] Administration Sodium Chloride 10 ml 10/04/18 22:00 10/05/18 21:39 Sodium Chloride Flush Syringe 10 Ml IV 10 ml BID [facility] Administration Sodium Chloride 10 ml 10/04/18 15:10 Sodium Chloride Flush Syringe 10 Ml IV PRN PRN LINE FLUSH
--- NOTE | 2018-10-06 10:32 | Progress Note ---
<NADIRA ALICIA - Last Filed: 10/06/18 10:29> Assessment and Plan Acute on chronic heart failure Acute renal failure Htn Recommend: Continue chronic medical therapy for heart failure. Transition to oral Lasix. Echocardiogram completed, results are pending. Subjective Date of service: 10/06/18 Interval history: Patient reports her breathing is better. No distress noted. Family members at bedside. Objective Vital Signs Temp Pulse Pulse Pulse Resp Resp BP 10/06/18 08:05 103 H 18 10/06/18 07:50 92 H 18 10/06/18 07:35 98.6 F 105 H 18 117/69 10/06/18 04:00 98.2 F 112 H 16 10/05/18 23:35 98.2 F 115 H 16 93/55 10/05/18 20:30 122 H 20 10/05/18 20:21 120 H 18 10/05/18 20:11 109 H 18 10/05/18 19:36 97.4 F L 118 H 16 113/71 10/05/18 19:31 105 H 10/05/18 17:26 97.3 F L 118 H 16 118/79 BP Pulse Ox 10/06/18 08:05 10/06/18 07:50 10/06/18 07:35 94 10/06/18 04:00 103/58 97 10/05/18 23:35 97 10/05/18 20:30 96 10/05/18 20:21 10/05/18 20:11 10/05/18 19:36 97 10/05/18 19:31 10/05/18 17:26 98 - Physical Examination General: No Apparent Distress HEENT: Positive: PERRL Neck: Positive: trachea midline Cardiac: Positive: Reg Rate and Rhythm Lungs: Positive: Decreased Breath Sounds Neuro: Positive: Grossly Intact Extremities: Absent: edema - Labs and Meds Comprehensive Metabolic Panel 10/06/18 Range/Units 09:36 Sodium 133 L (137-145) mmol/L Potassium 4.4 (3.6-5.0) mmol/L Chloride 95.9 L (98-107) mmol/L Carbon Dioxide 19 L (22-30) mmol/L BUN 44 H (7-17) mg/dL Creatinine 1.8 H (0.7-1.2) mg/dL Glucose 270 H (65-100) mg/dL Calcium 9.0 (8.4-10.2) mg/dL <JANIE ZUNIGA - Last Filed: 10/06/18 15:40> Assessment and Plan I have seen and evaluated the patient, and agree with the assessment and plan. Echo completed and shows EF 30-35% with severe MR. Patient is currently euvolemic by exam. May d/c home if PO lasix makes her void. Patient is instructed to follow up with her winder helper within 1 week. Objective Vital Signs Temp Pulse Pulse Pulse Resp Resp BP 10/06/18 11:55 97.5 F L 101 H 18 112/65 10/06/18 10:00 100 H 10/06/18 08:05 103 H 18 10/06/18 07:50 92 H 18 10/06/18 07:35 98.6 F 105 H 18 117/69 10/06/18 04:00 98.2 F 112 H 16 10/05/18 23:35 98.2 F 115 H 16 93/55 10/05/18 20:30 122 H 20 10/05/18 20:21 120 H 18 10/05/18 20:11 109 H 18 10/05/18 19:36 97.4 F L 118 H 16 113/71 10/05/18 19:31 105 H 10/05/18 17:26 97.3 F L 118 H 16 118/79 BP Pulse Ox 10/06/18 11:55 98 10/06/18 10:00 10/06/18 08:05 10/06/18 07:50 10/06/18 07:35 94 10/06/18 04:00 103/58 97 10/05/18 23:35 97 10/05/18 20:30 96 10/05/18 20:21 10/05/18 20:11 10/05/18 19:36 97 10/05/18 19:31 10/05/18 17:26 98 - Labs and Meds Comprehensive Metabolic Panel 10/06/18 Range/Units 09:36 Sodium 133 L (137-145) mmol/L Potassium 4.4 (3.6-5.0) mmol/L Chloride 95.9 L (98-107) mmol/L Carbon Dioxide 19 L (22-30) mmol/L BUN 44 H (7-17) mg/dL Creatinine 1.8 H (0.7-1.2) mg/dL Glucose 270 H (65-100) mg/dL Calcium 9.0 (8.4-10.2) mg/dL
--- NOTE | 2018-10-06 11:56 | Discharge Summary ---
Providers - Providers Date of Admission: 10/04/18 14:38 Attending physician: MAIDA REED MD 10/04/18 15:18 Consult to Physician [CONS] Routine Comment: Consulting Provider: GRAHAM TOTH Physician Instructions: Reason For Exam: CHF exacerbation 10/05/18 07:52 Consult to Physician [CONS] Routine Comment: Consulting Provider: SHAHAB DOYLE Physician Instructions: Reason For Exam: Joy Primary care physician: BUILDING CERTIFIER Hospitalization Reason for admission: CHF exacerbation Condition: Stable Pertinent studies: Echo EF 30-35%, abnormal diastolic dysfunction Hospital course: 88-year-old female visiting from [place] with history of congestive heart failure recently drove from out of town for a . The drive was 17 hours. Patient and family report multiple stops for gas, bathroom break. The patient reports being in her usual state of health yesterday. She denies leg pain, leg swelling. She went to the today, and began to experience pain with shortness of breath. She has cough, wheezing, shortness of breath. The patient endorses weakness, but denies chest pain, abdominal pain, urinary symptoms. Severe Orthopnea present. Class IV NYHA symptoms present. patient was treated appropriately for CHF exacerbation and patients symptoms resolved. patient has JOY and nephrology saw and recommend to held lisinopril, continue lasix 40mg daily. Discussed with cardiology FIELD SALES ASSOCIATE Jessica and said the patient is ok to discharge. Asked about echo and said she is a known cardiomyopathy. Patient said she has cardiology at [place] and will follow when she get there. patient was hemodynamically stable at the time of discharge. Disposition: TO HOME OR SELFCARE Time spent for discharge: 32 minutes - Discharge Diagnoses (1) JOY (acute kidney injury) Status: Acute (2) Acute exacerbation of congestive heart failure Status: Acute Qualifiers: Heart failure type: combined systolic and diastolic Qualified Code(s): I50.43 - Acute on chronic combined systolic (congestive) and diastolic (congestive) heart failure (3) HTN (hypertension) Status: Chronic Qualifiers: Hypertension type: essential hypertension Qualified Code(s): I10 - Essential (primary) hypertension Core Measure Documentation - Palliative Care Palliative Care/ Comfort Measures: Not Applicable - Core Measures Any of the following diagnoses?: heart failure - Heart Failure Discharge Requirements ANDREA/ARB for LVSD if EF <40%: No Reason for no ANDREA/ARB: Renal impairment Beta milo at discharge: Yes Exam - Constitutional Vitals: Temp Pulse Resp BP Pulse Ox 98.6 F 103 H 18 117/69 94 10/06/18 07:35 10/06/18 08:05 10/06/18 08:05 10/06/18 07:35 10/06/18 07:35 General appearance: Present: no acute distress, well-nourished - EENT Eyes: Present: PERRL ENT: hearing intact, clear oral mucosa - Neck Neck: Present: supple, normal ROM - Respiratory Respiratory effort: normal Respiratory: bilateral: CTA - Cardiovascular Heart Sounds: Present: S1 & S2. Absent: rub, click - Extremities Extremities: pulses symmetrical, No edema Peripheral Pulses: within normal limits - Abdominal General gastrointestinal: Present: soft, non-tender, non-distended, normal bowel sounds - Integumentary Integumentary: Present: clear, warm, dry - Musculoskeletal Musculoskeletal: gait normal, strength equal bilaterally - Psychiatric Psychiatric: appropriate mood/affect, intact judgment & insight - Neurologic Neurologic: CNII-XII intact, moves all extremities - Allied Health Allied health notes reviewed: nursing Plan Activity: no restrictions Weight Bearing Status: Full Weight Bearing Diet: low cholesterol, low salt Additional Instructions: Patient is from [place] and advised to see PCP when she is back. Follow up with: PRIMARY MD RICH [Primary Care Provider] - 3-5 Days
[2018-10-06 11:59] VITALS: BP 112/65
[2018-10-07] MEDS ORDERED: LASIX PO SCH (10:00)
== END 2018-10-06 14:27 | disposition home or self-care (01) | DRG 682 ==
LOC: ED 12:57 → IMCU 14:38 → 4A 19:51
PROVIDERS: ADMIT Internal Medicine; ATTEND Internal Medicine
PROC: 5A09357 Assistance with Respiratory Ventilation, Less than 24 Consecutive Hours, Continuous Positive Airway Pressure (ICD-10-PCS; principal; 2018-10-04)
DX: N17.9 Acute kidney failure, unspecified (principal); I50.43 Acute on chronic combined systolic (congestive) and diastolic (congestive) heart failure; J96.01 Acute respiratory failure with hypoxia; Z79.899 Other long term (current) drug therapy; I11.0 Hypertensive heart disease with heart failure; Z82.49 Family history of ischemic heart disease and other diseases of the circulatory system; E11.65 Type 2 diabetes mellitus with hyperglycemia; Z79.82 Long term (current) use of aspirin
CPT/HCPCS: 36415; 71045; 80048; 80053; 81001; 82140; 82570; 82962; 83036; 83880; 84156; 84300; 84484; 85025; 85610; 85730; 87040; 93005; 93010; 93306; 93970; 94640; 94644; G0378; J0456; J0696; J1650; J1815; J1940; J1956; J2930; J3475; J7050